=== PATIENT | female | born 1995 | race Caucasian/White ===

== ENCOUNTER 2017-03-12 20:58 | Inpatient (IN) | payer OTHER ==
[2017-03-12 21:27] LABS: BILIRUBIN,URINE NEGATIVE (NEGATIVE); GLUCOSE, URINE NEGATIVE (NEGATIVE); KETONES,URINE NEGATIVE (NEGATIVE); LEUKOCYTE ESTERASE,URINE LARGE (NEGATIVE); NITRITE,URINE NEGATIVE (NEGATIVE); PROTEIN,URINE 30 mg/dL (NEGATIVE); URINE SPECIFIC GRAVITY 1.016; UROBILINOGEN,URINE NEGATIVE mg/dL (<2.0)
[2017-03-12 21:28] LABS: APPEARANCE,URINE SLIGHTLY-CLOUDY
[2017-03-12 21:57] LABS: URINE BARBITURATES SCREEN NEGATIVE; URINE METHADONE SCREEN NEGATIVE; URINE OPIATES LOW NEGATIVE; URINE PHENCYCLIDINE SCREEN NEGATIVE
[2017-03-12] MEDS ORDERED: RINGERS SOLUTION,LACTATED 1,000 ML IV PRN (23:08)
[2017-03-12 23:39] LABS: HEMATOCRIT 35.8 % (36.0-47.0); HEMOGLOBIN 12.1 g/dL (12.0-15.5); HGB HCT DIFFERENCE 0.5; MEAN CORPUSCULAR HGB CONC 33.7 g/dL (32.0-36.0); MEAN CORPUSCULAR VOLUME 83 fl (80-97); RED BLOOD COUNT 4.31 10^6/uL (3.72-5.28); RED CELL DISTRIBUTION WIDTH 14.1 % (11.5-14.0); WHITE BLOOD COUNT 21.5 10^3/uL (4.0-10.5)
[2017-03-12 23:58] LABS: BASOPHILS % (MANUAL) 0 % (0-2); EOSINOPHILS % (MANUAL) 0 % (0-6); LYMPHOCYTES % (MANUAL) 14 % (13-45); TOTAL CELLS COUNTED 100
[2017-03-13] LABS: ANISOCYTOSIS SLIGHT; OVALOCYTES SLIGHT; POIKILOCYTOSIS SLIGHT; TOXIC GRANULATION SLIGHT
[2017-03-13] MEDS ORDERED: CEFAZOLIN 1 GM/D5W RTU 1 GM/50 ML RTUPB IV ONE (00:51)
[2017-03-13] MEDS ORDERED: MISOPROSTOL 0.2 MG TABLET ONE (00:52)
[2017-03-13] MEDS ORDERED: OXYTOCIN/NORMAL SALINE 20 UNIT/1,000 ML RTUINJ ONE (00:52)
[2017-03-13] MEDS ORDERED: LIDOCAINE 1% INJ-PF (10 MG/ML) 30 ML SDV ONE (00:52)
[2017-03-13] MEDS ORDERED: NALBUPHINE HCL INJ 10 MG/1 ML AMPULE IV ONE (04:25)
[2017-03-13] MEDS ORDERED: PROMETHAZINE HCL INJ 25 MG/1 ML VIAL IV ONE (04:25)
[2017-03-13] MEDS ORDERED: NALBUPHINE HCL INJ 10 MG/1 ML AMPULE ONE (04:26)
[2017-03-13] MEDS ORDERED: PROMETHAZINE HCL INJ 25 MG/1 ML VIAL ONE (04:26)
[2017-03-13] MEDS ORDERED: GLYCERIN/WITCH HAZEL LEAF 1 EACH MED..PAD TP PRN (05:44)
[2017-03-13] MEDS ORDERED: MEASLES,MUMPS&RUBELLA VACC/PF 0.5 ML VIAL SUBCUT PRN (05:44)
[2017-03-13] MEDS ORDERED: ACETAMINOPHEN WITH CODEINE #3 TABLET PO PRN (05:44)
[2017-03-13] MEDS ORDERED: DIPH/PERTUSS(ACELL)/TETANUS VAC/PF 0.5 ML SYR (>=10YO) IM PRN (05:44)
[2017-03-13] MEDS ORDERED: MAGNESIUM HYDROXIDE SUSP 30 ML UDCUP PO PRN (05:44)
[2017-03-13] MEDS ORDERED: DIBUCAINE 1% OINTMENT 28 GM TP PRN (05:44)
[2017-03-13] MEDS ORDERED: BENZOCAINE/MENTHOL AEROSOL SPRAY 56 ML TOP PRN (05:44)
[2017-03-13] MEDS ORDERED: PROMETHAZINE HCL 25 MG SUPP.RECT PR PRN (05:44)
[2017-03-13] MEDS ORDERED: ZOLPIDEM TARTRATE 5 MG TABLET PO PRN (05:44)
[2017-03-13] MEDS ORDERED: DIPHENHYDRAMINE HCL 25 MG CAPSULE PO PRN (05:44)
[2017-03-13] MEDS ORDERED: PROMETHAZINE HCL 25 MG TABLET PO PRN (05:44)
[2017-03-13] MEDS ORDERED: PROMETHAZINE HCL INJ 25 MG/1 ML VIAL IV PRN (05:44)
[2017-03-13] MEDS ORDERED: NA PHOS,M-B/NA PHOS,DI-BA (ADULT) 133 ML ENEMA PR PRN (05:44)
[2017-03-13] MEDS ORDERED: PSEUDOEPHEDRINE HCL 30 MG TABLET PO PRN (05:44)
[2017-03-13] MEDS ORDERED: OXYTOCIN/NORMAL SALINE 1,000 ML IV PRN (05:44)
[2017-03-13] MEDS ORDERED: ACETAMINOPHEN 650 MG SUPP.RECT PR PRN (05:44)
--- NOTE | 2017-03-13 06:09 | Delivery Summary ---
Del Sum A-C Datetime Report Generated by CPN: 03/13/2017 06:08 DELIVERY PERSONNEL DELIVERY PERSONNEL: [phone] Delivery Doctor:: Lynnette Goldman MD Labor and Delivery Nurse:: Theodora Betancur RN Nursery Nurse:: Idania Rolle RN Modern Dancer/PROJECT DEVELOPMENT COORDINATOR: Aarti Spencezgerald, ST MATERNAL INFORMATION Delivery Anesthesia: Local Medications After Delivery: Pitocin Drip 20 Units/1000ml NSS Meds After Delivery Comment: Ns with pitocin 20 units/liter ivf bolus Estimated Blood Loss (ml): 250 Maternal Complications: None Other Maternal Complications: received nubain and phenergan within hour of delivery LABOR SUMMARY EDC: 03/29/2017 00:00 No. Babies in Womb: 1 Attempted: No Labor Anesthesia: IV Sedation LABOR INFORMATION Reason for Induction: Not Applicable Onset of Labor: 03/12/2017 14:00 Complete Dilatation: 03/13/2017 05:14 Oxytocin: N/A Group B Beta Strep: Negative Antibiotics # of Doses: 1 Antibiotics Time of Last Dose: 0059 Name of Antibiotic Given: Ancef 1 gram Steroids Given: None Reason Steroids Not Administered: Not Applicable MEMBRANES Membranes Rupture Method: Artificial Rupture of Membranes: 03/13/2017 04:14 Length of Rupture (hr): 1.23 Amniotic Fluid Color: Light Meconium Amniotic Fluid Amount: Moderate Amniotic Fluid Odor: Normal STAGES OF LABOR Stage 1 hr: 15 Stage 1 min: 14 Stage 2 hr: 0 Stage 2 min: 14 Stage 3 hr: 0 Stage 3 min: 7 Total Time in Labor hr: 15 Total Time in Labor min: 35 VAGINAL DELIVERY Episiotomy: None Laceration Extension: N/A Other Laceration: labial Laceration Repair: Yes Laceration Repair Note: right labial lac repaired with 3-0 chromic suture times one Sponge Count Correct: N/A; Vaginal Sweep Performed Sharps Count Correct: Yes CSECTION DELIVERY Primary Indication: N/A Secondary Indication: N/A CSection Incidence: N/A Labor: N/A Elective: N/A CSection Incision: N/A BABY A INFORMATION Delivery Date/Time: 03/13/2017 05:28 Method of Delivery: Vaginal Born in Route : No : N/A Forceps: N/A Vacuum Extraction: N/A Shoulder Dystocia : No PRESENTATION/POSITION BABY A Presentation: Cephalic Cephalic Presentation: Vertex Vertex Position: Left Occipital Anterior Breech Presentation: N/A PLACENTA INFORMATION BABY A Placenta Delivery Time : 03/13/2017 05:35 Placenta Method of Delivery: Spontaneous Placenta Status: Delivered SCORES BABY A Heart Rate 1 min: >100 bpm Resp Effort 1 min: Good Cry Reflex Irritability 1 min: Cough or Sneeze or Pulls Away Muscle Tone 1 min: Active Motion Color 1 min: Blue/Pale Resuscitation Effort 1 min: Tactile Stimulation SCORE 1 MIN: 8 Heart Rate 5 min: >100 bpm Resp Effort 5 min: Good Cry Reflex Irritability 5 min: Cough or Sneeze or Pulls Away Muscle Tone 5 min: Active Motion Color 5 min: Body [place], Extremities Blue Resuscitation Effort 5 min: Tactile Stimulation SCORE 5 MIN: 9 INFORMATION BABY A Gestational Age at Delivery: 37.5 Gestational Status: Early Term- 37- 38.6 Weeks Outcome : Liveborn Condition : Stable Sex: Male IDENTIFICATION BABY A Infant Verification Date/Time: 03/13/2017 05:41 ID Band Number: [id number] Mother's Name Verified: Yes RN Verifying : SJessica Terrellir, RN _ JJessica Betancur, RN WEIGHT/LENGTH BABY A Infant Birthweight (gm): 3090 Weight (lb): 6 Infant Weight (oz): 13 Length (in): 20.00 Length (cm): 50.80 CORD INFORMATION BABY A No. Cord Vessels: 3 Nuchal Cord : N/A Cord Blood Taken: Yes-For Eval (Mom's Blood Type - or O+) Infant Suction: Mouth; Nose ASSESSMENT BABY A Complications: Multiple Variable Decels; Meconium Infant Complications- Other: fluid turned to light meconium at time of delivery, received nubain and phenergan within hour of delivery Physical Findings at Delivery: Cap[place] Succedaneum Infant Respirations: Grunting; Sternal Retractions Skin to Skin: Yes Skin to Skin Time (min): 5 Steel Fitter/ALS Called : No Care By: AUDRA Aquilino Transferred To: [facility] BABY B INFORMATION : N/A SIGNATURES Signature: with User ID: [email or web address]
--- NOTE | 2017-03-13 08:24 | Admission Physical ---
Datetime Report Generated by CPN: 03/13/2017 08:23 CURRENT ADMISSION Chief Complaint: Uterine Contractions Indication for Induction: Not Applicable Admit Plan: Admit to Unit; Initiate Labor Protocol ALLERGIES Medication Allergies: No Medication Allergies: No Known Allergies (03/12/2017) Medication Allergies: No Known Allergies (03/12/2017), peanuts, lactose intolerant Latex: No Latex Allergies Food Allergies: peanuts, lactose intolerant Environmental Allergies: denies OBSTETRICAL HISTORY EDC: 03/29/2017 00:00 : 1 Para: 0 Term: 0 : 0 SAB: 0 IAB: 0 Ectopic: 0 Livin Cesareans: 0 VBACs: 0 Multiple Births: 0 Gestational Diabetes: No Rh Sensitization: No Incompetent Cervix: No GLADIS: No Infertility: No ART Treatment: No Uterine Anomaly: No IUGR: No Hx Previous C/S: No Macrosomia: No Hx Loss/Stillborn: No PIH: No Hx : No Placenta Previa/Abruption: No Depression/PP Depression: No PTL/PROM: No Post Hemorrhage: No Current Procedures: Ultrasound Obstetrical History Comments: G1- Current SEE RECORDS Alcohol: No Marijuana : No Cocaine: No Other Illicit Drugs: No Cigarettes: Never Smoker. [id number] MEDICAL HISTORY Diabetes: No Blood Transfusion: No Pulmonary Disease (Asthma, TB): No Breast Disease: No Hypertension: No Pipe Maker Surgery: No Heart Disease: No Hosp/Surgery: No Autoimmune Disorder: No Anesthetic Complications: No Kidney Disease: No Abnormal Pap Smear: No Neuro/Epilepsy: No Psychiatric Disorders: No Other Medical Diseases: Yes Hepatitis/Liver Disease: No Significant Family History: No Varicosities/Phlebitis: No Trauma/Violence : No Thyroid Dysfunction: No Medical History Comments: PCOS, insulin resistance, depression stopped meds two years ago INFECTIOUS HISTORY Gonorrhea: No Genital Herpes: No Chlamydia: No Tuberculosis: No Syphilis: No Hepatitis: No HIV/AIDS Exposure: No Rash or Viral Illness: No HPV: No PHYSICAL EXAM General: Normal HEENT: Normal Neurologic: Normal Thyroid: Normal Heart: Normal Lungs: Normal Breast: Deferred Back: Normal Abdomen: Normal Genitourinary Exam: Normal Extremities: Normal DTRs: Normal Pelvic Type: Adequate Vital Signs: Reviewed VAGINAL EXAM Dilatation: 7 Effacement: 100 Station: -1 MEMBRANES Pooling: Negative Membranes: Intact FETUS A EGA: 37.5 Monitoring: External US FHR- Baseline: 120 Variability: Moderate 6-25bpm Accelerations: 15X15 FHR Category: Category I Presentation: Vertex PLANS FOR LABOR AND DELIVERY Labor and Delivery: None Pain Management: Natural Feeding Preference: Breast Benefit of Breast Feed Discussed: Yes Circumcision: Yes INFORMED CONSENT Signature: with User ID: [email or web address]
[2017-03-13] MEDS ORDERED: CEFAZOLIN 1 GM/D5W RTU 1 GM/50 ML RTUPB IV SCH (09:00)
[2017-03-13] MEDS: DOCUSATE SODIUM 100 MG CAPSULE PO SCH ×2 (10:17→18:11)
[2017-03-13] MEDS: FAMOTIDINE 20 MG TABLET PO SCH ×2 (10:17→21:45)
[2017-03-13] MEDS: SENNOSIDES/DOCUSATE 8.6-50 MG 1 EACH TABLET PO SCH (10:17)
[2017-03-13] MEDS: PRENATAL VITAMIN W-O CA NO5/FE FUMARATE/FA CAPSULE PO SCH (10:17)
[2017-03-13] MEDS: FERROUS SULFATE 325 MG TABLET PO SCH ×2 (10:18→18:12)
[2017-03-13] MEDS: IBUPROFEN 800 MG TABLET PO SCH ×2 (13:14→21:44)
[2017-03-13] MEDS: ACETAMINOPHEN WITH CODEINE #3 TABLET PO PRN (18:19)
[2017-03-14] MEDS: IBUPROFEN 800 MG TABLET PO SCH ×3 (05:58→21:57)
[2017-03-14] MEDS: ACETAMINOPHEN WITH CODEINE #3 TABLET PO PRN (07:29)
[2017-03-14 07:33] LABS: HEMATOCRIT 31.8 % (36.0-47.0); HEMOGLOBIN 10.5 g/dL (12.0-15.5); HGB HCT DIFFERENCE -0.3; MEAN CORPUSCULAR VOLUME 85 fl (80-97); RED BLOOD COUNT 3.75 10^6/uL (3.72-5.28); RED CELL DISTRIBUTION WIDTH 14.1 % (11.5-14.0); WHITE BLOOD COUNT 18.3 10^3/uL (4.0-10.5)
--- NOTE | 2017-03-14 11:57 | PDOC PROGRESS REPORT ---
Subjective-OB Subjective: Post Delivery Day:1 22 year old G1 now P1 s/p ppd1. Ambulating, without difficulty. 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 Denies any needs at this time Physical Exam (OB) Vital Signs: Temp Pulse Resp BP Pulse Ox 98.2 F 80 13 124/76 100 03/14/17 07:48 03/14/17 07:48 03/14/17 07:48 03/14/17 07:48 03/14/17 07:48 Intake & Output 03/13/17 03/14/17 03/15/17 06:59 06:59 06:59 Weight 92.8 kg - General General Appearance: Appears well In distress: None - Episiotomy/Laceration Site Condition: Well Approximated - Lochia Lochia Amount: Scant < 10 ml Lochia Color: Rubra/Red - Abdomen Description: Soft, Flat Hernia Present: No Fundal Description: Firm, Midline Fundal Height: u/u - u/2 - Respiratory Respiratory Status: No respiratory distress - Extremities Upper extremity: Normal inspection Lower extremities: Normal inspection - Neurological Cognition: Normal Orientation: AAOx4 - Psychological Associated symptoms: Normal affect, Normal mood - pt. sad with being deployed but due to come home in about 3 weeks. Bonding well with baby. Objective-Diagnostic Laboratory: 03/14/17 07:23 03/14/17 07:23 WBC 18.3 H RBC 3.75 Hgb 10.5 L Hct 31.8 L MCV 85 MCH 28.0 MCHC 33.0 RDW 14.1 H Plt Count 214 Assessment and Plan(PN) - Assessment and Plan (1) Vaginal delivery Is this a current diagnosis for this admission?: YesPlan: continue stay (2) Acute blood loss anemia Is this a current diagnosis for this admission?: YesPlan: inc. iron in diet and feso4 supplementation - Time Spent with Patient Time with patient: 15-25 minutes Medications reviewed and adjusted accordingly: Yes - Disposition Anticipated Discharge: Home Within: within 24 hours
[2017-03-14] MEDS: PRENATAL VITAMIN W-O CA NO5/FE FUMARATE/FA CAPSULE PO SCH (12:03)
[2017-03-14] MEDS: SENNOSIDES/DOCUSATE 8.6-50 MG 1 EACH TABLET PO SCH (12:04)
[2017-03-14] MEDS: FERROUS SULFATE 325 MG TABLET PO SCH ×2 (12:04→18:31)
[2017-03-14] MEDS: DOCUSATE SODIUM 100 MG CAPSULE PO SCH ×2 (12:04→18:32)
[2017-03-14] MEDS: FAMOTIDINE 20 MG TABLET PO SCH ×2 (12:04→21:58)
[2017-03-15] MEDS: IBUPROFEN 800 MG TABLET PO SCH ×2 (05:55→13:05)
[2017-03-15 08:04] LABS: MEAN CORPUSCULAR HEMOGLOBIN 28.3 pg (27.0-33.4); MEAN CORPUSCULAR HGB CONC 33.4 g/dL (32.0-36.0); MEAN CORPUSCULAR VOLUME 85 fl (80-97); RED CELL DISTRIBUTION WIDTH 13.7 % (11.5-14.0); WHITE BLOOD COUNT 17.4 10^3/uL (4.0-10.5)
[2017-03-15 08:32] VITALS: BP 111/77
[2017-03-15] MEDS: DOCUSATE SODIUM 100 MG CAPSULE PO SCH (09:35)
[2017-03-15] MEDS: PRENATAL VITAMIN W-O CA NO5/FE FUMARATE/FA CAPSULE PO SCH (09:35)
[2017-03-15] MEDS: SENNOSIDES/DOCUSATE 8.6-50 MG 1 EACH TABLET PO SCH (09:35)
[2017-03-15] MEDS: FERROUS SULFATE 325 MG TABLET PO SCH (09:35)
[2017-03-15] MEDS: FAMOTIDINE 20 MG TABLET PO SCH (09:36)
--- NOTE | 2017-03-15 11:49 | PDOC DISCHARGE SUMMARY ---
Final Diagnosis Discharge Date: 03/15/17 - Final Diagnosis (1) Acute blood loss anemia Is this a current diagnosis for this admission?: Yes (2) Vaginal delivery Is this a current diagnosis for this admission?: Yes Discharge Data - Discharge Medication Home Medications: Pnv95/Ferrous Fumarate/FA [ Vitamins Tablet] 1 tab PO DAILY 03/12/17 Reason(s) for Admission: Onset of Labor Intrapartum Procedure(s): Spontaneous Vaginal Delivery Complication(s): Laceration-Labial Laceration-Degree: 1st - Diagnosis Test Laboratory: Temp Pulse Resp BP Pulse Ox 98.0 F 89 20 111/77 100 03/15/17 08:01 03/15/17 08:01 03/15/17 08:01 03/15/17 08:01 03/15/17 08:01 03/12/17 03/12/17 03/14/17 21:07 23:27 07:23 RBC 4.31 3.75 Hgb 12.1 10.5 L Hct 35.8 L 31.8 L Urine Opiates Screen NEGATIVE 03/15/17 07:54 RBC 3.90 Hgb 11.0 L Hct 33.0 L Urine Opiates Screen - Discharge information/Instructions Discharge Activity: Activity As Tolerated, Balance Activity w/Rest Discharge Diet: Regular Disposition: HOME, SELF-CARE Follow up with: [facility] in: 4 - lacatation treasury consultant to see pt prior to discharge precautions reviewed
== END 2017-03-15 13:27 | disposition home or self-care (01) | DRG 775 ==
LOC: LC 20:58 → LR 23:06 → 2S 03-13 08:22
PROVIDERS: ADMIT Obstetrics & Gynecology; ATTEND Obstetrics & Gynecology
PROC: 4A1HXCZ Monitoring of Products of Conception, Cardiac Rate, External Approach (ICD-10-PCS; 2017-03-12)
PROC: 10E0XZZ Delivery of Products of Conception, External Approach (ICD-10-PCS; principal; 2017-03-13)
PROC: 0HQ9XZZ Repair Perineum Skin, External Approach (ICD-10-PCS; 2017-03-13)
PROC: 10907ZC Drainage of Amniotic Fluid, Therapeutic from Products of Conception, Via Natural or Artificial Opening (ICD-10-PCS; 2017-03-13)
DX: O76 Abnormality in fetal heart rate and rhythm complicating labor and delivery (principal); D62 Acute posthemorrhagic anemia; O99.02 Anemia complicating childbirth; O70.0 First degree perineal laceration during delivery; O26.893 Other specified pregnancy related conditions, third trimester; O77.0 Labor and delivery complicated by meconium in amniotic fluid; E73.9 Lactose intolerance, unspecified; Z91.010 Allergy to peanuts; Z3A.37 37 weeks gestation of pregnancy; Z37.0 Single live birth
CPT/HCPCS: 36415; 80307; 81005; 85025; 85027; 86592; 86850; 86900; 86901; 90715; J0690; J2300; J2550; J2590; J3490

== ENCOUNTER 2018-04-25 03:44 | Inpatient (IN) | payer OTHER ==
[2018-04-25 04:07] LABS: APPEARANCE,URINE CLOUDY; BILIRUBIN,URINE NEGATIVE (NEGATIVE); COLOR,URINE YELLOW; GLUCOSE, URINE NEGATIVE (NEGATIVE); KETONES,URINE NEGATIVE (NEGATIVE); LEUKOCYTE ESTERASE,URINE TRACE (NEGATIVE); NITRITE,URINE NEGATIVE (NEGATIVE); PROTEIN,URINE NEGATIVE (NEGATIVE); URINE SPECIFIC GRAVITY 1.008; UROBILINOGEN,URINE NEGATIVE mg/dL (<2.0)
[2018-04-25 04:19] LABS: URINE AMPHETAMINES SCREEN NEGATIVE; URINE BARBITURATES SCREEN NEGATIVE; URINE BENZODIAZEPINES SCREEN NEGATIVE; URINE COCAINE SCREEN NEGATIVE; URINE MARIJUANA (THC) SCREEN NEGATIVE; URINE METHADONE SCREEN NEGATIVE; URINE PHENCYCLIDINE SCREEN NEGATIVE
[2018-04-25] MEDS ORDERED: HYDROXYZINE PAMOATE 50 MG CAPSULE PO ONE (04:52)
--- NOTE | 2018-04-25 04:57 | Non Stress Test Report ---
Non Stress Test Datetime Report Generated by CPN: 04/25/2018 04:57 DEMOGRAPHIC Test Number: 1 EGA NST: 33.4 INDICATION Indication for Study: Ordered by Provider MONITORING Monitor Explained: Monitor Explained; Test Explained; Patient Verbalized Understanding Time on Monitor: 04/25/2018 03:57 Time off Monitor: 04/25/2018 04:53 NST Duration: 56 NST INTERVENTIONS NST Interventions: PO Hydration Physician Notified NST: Dr. Maury BABY A: [id number] BABY A Movement : Present Contraction Frequency : irritibility FHR Baseline : 140 Accelerations : 15X15 Decelerations : None Variability : Moderate 6-25bpm NST Review: Meets Criteria for Reactive NST NST Review and Verified By : ALLEN Garcia NST REPORT Report Trigger: Send Report
[2018-04-25] MEDS ORDERED: HYDROXYZINE PAMOATE 50 MG CAPSULE ONE (05:00)
[2018-04-25] MEDS ORDERED: MISOPROSTOL 0.2 MG TABLET ONE (05:36)
[2018-04-25] MEDS ORDERED: LIDOCAINE 1% INJ-PF (10 MG/ML) 30 ML SDV ONE (05:36)
[2018-04-25] MEDS ORDERED: OXYTOCIN/NORMAL SALINE 20 UNIT/1,000 ML RTUINJ ONE (05:36)
[2018-04-25] MEDS ORDERED: PENICILLIN G-K 5 MILLION UNIT VIAL ONE ×3 (05:38→08:57)
[2018-04-25] MEDS ORDERED: BETAMET ACET/BETAMET NA INJ 6 MG/1 ML ONE (05:44)
[2018-04-25] MEDS ORDERED: NIFEDIPINE 10 MG CAPSULE ONE (05:46)
[2018-04-25] MEDS ORDERED: PENICILLIN G POTASSIUM 5,000,000 UNIT in DEXTROSE 5%-WATER 100 ML IV ONE (05:48)
[2018-04-25] MEDS ORDERED: RINGERS SOLUTION,LACTATED 1,000 ML IV ONE (05:48)
[2018-04-25] MEDS ORDERED: RINGERS SOLUTION,LACTATED 1,000 ML IV PRN (05:48)
[2018-04-25] MEDS ORDERED: BETAMET ACET/BETAMET NA INJ 6 MG/1 ML IM ONE (05:51)
--- NOTE | 2018-04-25 05:54 | Admission Physical ---
Datetime Report Generated by CPN: 04/25/2018 05:53 CURRENT ADMISSION Chief Complaint: Uterine Contractions Indication for Induction: Not Applicable Admit Impression : , Intrauterine ; Active Labor; Intact Membranes; Obstetrical Complication Admit Plan: Admit to Unit; Initiate Labor Protocol Admit Plan- Other: over 32 weeks therefore will forgoe Mag. Give ACS protocol and procardia for tocolysis. ALLERGIES Medication Allergies: No Medication Allergies: No Known Allergies (03/12/2017) Latex: No Latex Allergies OBSTETRICAL HISTORY EDC: 06/09/2018 00:00 : 2 Para: 1 Term: 1 : 0 SAB: 0 IAB: 0 Ectopic: 0 Livin Cesareans: 0 VBACs: 0 Multiple Births: 0 Gestational Diabetes: No Rh Sensitization: No Incompetent Cervix: No GLADIS: No Infertility: No ART Treatment: No Uterine Anomaly: No IUGR: No Hx Previous C/S: No Macrosomia: No Hx Loss/Stillborn: No PIH: No Hx : No Placenta Previa/Abruption: No Depression/PP Depression: Yes PTL/PROM: No Post Hemorrhage: No Obstetrical History Comments: G1- G2- current SEE RECORDS Alcohol: No Marijuana : No Cocaine: No Other Illicit Drugs: No Cigarettes: Never Smoker. [id number] MEDICAL HISTORY Diabetes: No Blood Transfusion: No Pulmonary Disease (Asthma, TB): No Breast Disease: No Hypertension: No Heel Compressor Surgery: No Heart Disease: No Hosp/Surgery: No Autoimmune Disorder: No Anesthetic Complications: No Kidney Disease: No Abnormal Pap Smear: No Neuro/Epilepsy: No Psychiatric Disorders: No Other Medical Diseases: No Hepatitis/Liver Disease: No Significant Family History: No Varicosities/Phlebitis: No Trauma/Violence : No Thyroid Dysfunction: No Medical History Comments: anxiety and depression INFECTIOUS HISTORY Gonorrhea: No Genital Herpes: No Chlamydia: No Tuberculosis: No Syphilis: No Hepatitis: No HIV/AIDS Exposure: No Rash or Viral Illness: No HPV: No PHYSICAL EXAM General: Normal HEENT: Normal Neurologic: Normal Thyroid: Normal Heart: Normal Lungs: Normal Breast: Normal Back: Normal Abdomen: Normal Genitourinary Exam: Normal Extremities: Normal DTRs: Normal Pelvic Type: Adequate Vital Signs: Reviewed VAGINAL EXAM Dilatation: 5 Effacement: 90 Station: -1 MEMBRANES Pooling: Negative Membranes: Intact FETUS A EGA: 33.4 Monitoring: External US FHR- Baseline: 140 Variability: Moderate 6-25bpm Accelerations: 15X15 Decelerations: None FHR Category: Category I Estimated Weight (gm): 2200 Presentation: Vertex PLANS FOR LABOR AND DELIVERY Pain Management: None Feeding Preference: Breast Benefit of Breast Feed Discussed: Yes Circumcision: No INFORMED CONSENT Signature: with User ID: [email or web address]
[2018-04-25] MEDS: NIFEDIPINE 10 MG CAPSULE PO SCH ×2 (06:28→13:40)
[2018-04-25 07:40] LABS: ABSOLUTE BASOPHILS # (AUTO) 0.1 10^3/uL (0.0-0.2); ABSOLUTE LYMPHOCYTES (AUTO) 1.8 10^3/uL (0.5-4.7); ABSOLUTE MONOCYTES (AUTO) 0.6 10^3/uL (0.1-1.4); ABSOLUTE NEUT (AUTO) 16.4 10^3/uL (1.7-8.2); BASOPHILS % (AUTO) 0.3 % (0-2); EOSINOPHILS % (AUTO) 0.2 % (0-6); HEMATOCRIT 34.2 % (36.0-47.0); HEMOGLOBIN 11.4 g/dL (12.0-15.5); LYMPHOCYTES % (AUTO) 9.4 % (13-45); MEAN CORPUSCULAR HEMOGLOBIN 27.9 pg (27.0-33.4); MEAN CORPUSCULAR HGB CONC 33.3 g/dL (32.0-36.0); MEAN CORPUSCULAR VOLUME 84 fl (80-97); MONOCYTES % (AUTO) 3.2 % (3-13); PLATELET COUNT 246 10^3/uL (150-450); SEGMENTED NEUTROPHILS % (AUTO) 86.9 % (42-78); TOTAL CELLS COUNTED % (AUTO) 100 %; WHITE BLOOD COUNT 18.9 10^3/uL (4.0-10.5)
[2018-04-25] MEDS ORDERED: PENICILLIN G POTASSIUM 2,500,000 UNIT in DEXTROSE 5%-WATER 50 ML IV SCH (09:50)
[2018-04-25] MEDS ORDERED: IBUPROFEN 800 MG TABLET ONE (11:11)
[2018-04-25] MEDS ORDERED: ZOLPIDEM TARTRATE 5 MG TABLET PO PRN (13:16)
[2018-04-25] MEDS ORDERED: OXYTOCIN/NORMAL SALINE 20 UNIT/1,000 ML RTUINJ IV PRN (13:16)
[2018-04-25] MEDS ORDERED: MEASLES,MUMPS&RUBELLA VACC/PF 0.5 ML VIAL SUBCUT PRN (13:16)
[2018-04-25] MEDS ORDERED: DIPH/PERTUSS(ACELL)/TETANUS VAC/PF 0.5 ML SYR (>=10YO) IM PRN (13:16)
[2018-04-25] MEDS ORDERED: BENZOCAINE/MENTHOL AEROSOL SPRAY 56 ML TOP PRN (13:16)
[2018-04-25] MEDS ORDERED: DIBUCAINE 1% OINTMENT 28 GM TP PRN (13:16)
[2018-04-25] MEDS ORDERED: ACETAMINOPHEN WITH CODEINE #3 TABLET PO PRN ×2 (13:16)
[2018-04-25] MEDS: IBUPROFEN 800 MG TABLET PO SCH ×2 (13:45→22:37)
[2018-04-25] MEDS: FERROUS SULFATE 325 MG TABLET PO SCH (17:30)
[2018-04-25] MEDS: DOCUSATE SODIUM 100 MG CAPSULE PO SCH (17:30)
[2018-04-26 09:20] LABS: HEMATOCRIT 32.6 % (36.0-47.0); HEMOGLOBIN 10.8 g/dL (12.0-15.5); MEAN CORPUSCULAR HEMOGLOBIN 27.6 pg (27.0-33.4); MEAN CORPUSCULAR VOLUME 84 fl (80-97); PLATELET COUNT 286 10^3/uL (150-450); WHITE BLOOD COUNT 19.1 10^3/uL (4.0-10.5)
[2018-04-26] MEDS: IBUPROFEN 800 MG TABLET PO SCH ×3 (09:31→22:33)
[2018-04-26] MEDS: DOCUSATE SODIUM 100 MG CAPSULE PO SCH ×2 (09:32→17:49)
[2018-04-26] MEDS: PRENATAL VITAMIN W DHA CAPSULE PO SCH (09:32)
[2018-04-26] MEDS: SENNOSIDES/DOCUSATE 8.6-50 MG 1 EACH TABLET PO SCH (09:32)
[2018-04-26] MEDS: FERROUS SULFATE 325 MG TABLET PO SCH ×2 (09:32→17:49)
--- NOTE | 2018-04-26 10:24 | PDOC PROGRESS REPORT ---
Subjective-OB Progress Note for:: 04/26/18 Subjective: Doing well, no c/o, pain under control, baby doing better, pumping breasts, ambulating Physical Exam (OB) Vital Signs: Temp Pulse Resp BP Pulse Ox 98.3 F 80 18 116/66 97 04/25/18 20:45 04/25/18 20:45 04/25/18 20:45 04/25/18 20:45 04/25/18 20:45 Intake & Output 04/25/18 04/26/18 04/27/18 06:59 06:59 06:59 Intake Total 850 Balance 850 Weight 97 kg - Lochia Lochia Amount: Scant < 10 ml Lochia Color: Rubra/Red - Abdomen Description: Soft, Round Hernia Present: No Fundal Description: Firm, Midline Fundal Height: u/u - u/2 Assessment and Plan(PN) - Assessment and Plan (1) Acute blood loss anemia Is this a current diagnosis for this admission?: Yes (2) Vaginal delivery Is this a current diagnosis for this admission?: Yes - Time Spent with Patient Time with patient: Less than 15 minutes Medications reviewed and adjusted accordingly: Yes - Disposition Anticipated Discharge: Home Within: within 24 hours
[2018-04-27] MEDS: IBUPROFEN 800 MG TABLET PO SCH (06:05)
[2018-04-27 08:34] VITALS: BP 119/74
[2018-04-27] MEDS: DOCUSATE SODIUM 100 MG CAPSULE PO SCH (09:59)
[2018-04-27] MEDS: PRENATAL VITAMIN W DHA CAPSULE PO SCH (10:00)
[2018-04-27] MEDS: FERROUS SULFATE 325 MG TABLET PO SCH (10:00)
[2018-04-27] MEDS: SENNOSIDES/DOCUSATE 8.6-50 MG 1 EACH TABLET PO SCH (10:00)
--- NOTE | 2018-04-27 13:06 | PDOC DISCHARGE SUMMARY ---
Final Diagnosis Discharge Date: 04/27/18 - Final Diagnosis (1) delivery Is this a current diagnosis for this admission?: Yes (2) Vaginal delivery Is this a current diagnosis for this admission?: Yes (3) Acute blood loss anemia Is this a current diagnosis for this admission?: Yes Discharge Data - Discharge Medication Prescriptions: Ibuprofen [Motrin 800 mg Tablet] 800 mg PO Q8HP PRN #30 tablet PRN Reason: Abdominal Cramping Docusate Sodium [Colace 100 mg Capsule] 100 mg PO BID #60 capsule Ferrous Sulfate [Feosol 325 mg Tablet] 325 mg PO BID #60 tablet Home Medications: Pnv No.95/Ferrous Fum/Folic AC [ Vitamins Tablet] 1 tab PO DAILY Docusate Sodium [Colace 100 mg Capsule] 100 mg PO BID #60 capsule 04/27/18 Ferrous Sulfate [Feosol 325 mg Tablet] 325 mg PO BID #60 tablet 04/27/18 Ibuprofen [Motrin 800 mg Tablet] 800 mg PO Q8HP PRN #30 tablet 04/27/18 Reason(s) for Admission: Onset of Labor, Labor Procedures: Ultrasound Intrapartum Procedure(s): Spontaneous Vaginal Delivery - Diagnosis Test Laboratory: Temp Pulse Resp BP Pulse Ox 97.8 F 78 15 119/74 100 04/27/18 10:46 04/27/18 10:46 04/27/18 10:46 04/27/18 08:10 04/27/18 10:46 04/25/18 04/25/18 04/26/18 03:47 06:20 07:21 RBC 4.10 3.90 Hgb 11.4 L 10.8 L Hct 34.2 L 32.6 L Urine Opiates Screen NEGATIVE - Discharge information/Instructions Discharge Activity: Activity As Tolerated, Balance Activity w/Rest, No Lifting Over 10 Pounds, No Lifting/Push/Pulling, Pelvic Rest, Slowly Increase Activity, No tub bath, Walk Frequently Discharge Diet: As Tolerated, Regular Disposition: HOME, SELF-CARE Follow up with: [facility] in: 4, Weeks
--- NOTE | 2018-05-10 11:20 | Delivery Summary ---
Del Sum A-C Datetime Report Generated by CPN: 05/10/2018 11:19 DELIVERY PERSONNEL DELIVERY PERSONNEL: [id number] Delivery Doctor:: Alfreda Rushing CNM Nurse Aviation Technical Systems Specialist Certified:: Alfreda Rushing CNM Labor and Delivery Nurse:: Gregory Smalls RN Neonatal Nurse Practitioner:: CHIP Harrison Nursery Nurse:: Kimber Foote RN Nursery Nurse:: Chinyere Dietz RN Hand Paster/DRY STARCH OPERATOR: Gabriela Chavez DRY STARCH OPERATOR II MATERNAL INFORMATION Delivery Anesthesia: None Medications After Delivery: Pitocin Bolus-Please Comment Meds After Delivery Comment: Pitocin 20 units in 1000ml nss open for bolus Maternal Complications: Other Complication Details: ptl 33+4 weeks Provider Comments: Called to room, pt with urge to push. Arom at complete dilation. SVDVM over intact perineum, stimulated, placed on mothers abd, cord clamped x 2 and cut. 3VC noted. Placenta via Rushing mech. FF immediately, bleeding stabilized. QBL 150. Baby in care of NBN staff. Mother stable. LABOR SUMMARY EDC: 06/09/2018 00:00 No. Babies in Womb: 1 Attempted: No Labor Anesthesia: None LABOR INFORMATION Reason for Induction: Not Applicable Onset of Labor: 04/25/2018 05:32 Complete Dilatation: 04/25/2018 10:37 Oxytocin: N/A Group B Beta Strep: 1 NO GROUP B STREPTOCOCCUS RECOVERED Group B Beta Strep: Unknown Antibiotics # of Doses: 2 Antibiotics Time of Last Dose: 0900 Name of Antibiotic Given: Penicillin Steroids Given: Partial Course; < 24 Hours before Delivery Reason Steroids Not Administered: Imminent Delivery MEMBRANES Membranes Rupture Method: Artificial Rupture of Membranes: 04/25/2018 10:39 Length of Rupture (hr): 0.08 Amniotic Fluid Color: Clear Amniotic Fluid Amount: Moderate Amniotic Fluid Odor: Normal STAGES OF LABOR Stage 1 hr: 5 Stage 1 min: 5 Stage 2 hr: 0 Stage 2 min: 7 Stage 3 hr: 0 Stage 3 min: 5 Total Time in Labor hr: 5 Total Time in Labor min: 17 VAGINAL DELIVERY Episiotomy: None Laceration #1: None Laceration Repair: Not Applicable Laceration Repair Note: n/a Sponge Count Correct: N/A Sharps Count Correct: N/A CSECTION DELIVERY Primary Indication: N/A Secondary Indication: N/A CSection Incidence: N/A Labor: N/A Elective: Elective CSection Incision: N/A BABY A INFORMATION Infant Delivery Date/Time: 04/25/2018 10:44 Method of Delivery: Vaginal Method of Delivery: Vaginal Born in Route : No : N/A Forceps: N/A Vacuum Extraction: N/A Shoulder Dystocia : No PRESENTATION/POSITION BABY A Presentation: Cephalic Cephalic Presentation: Vertex Vertex Position: Right Occipital Anterior Breech Presentation: N/A PLACENTA INFORMATION BABY A Placenta Delivery Time : 04/25/2018 10:49 Placenta Method of Delivery: Spontaneous Placenta Method of Delivery: Spontaneous Placenta Status: Delivered SCORES BABY A Heart Rate 1 min: >100 bpm Resp Effort 1 min: Good Cry Reflex Irritability 1 min: Cough or Sneeze or Pulls Away Muscle Tone 1 min: Some Flexion of Extremities Color 1 min: Blue/Pale Resuscitation Effort 1 min: Tactile Stimulation; Oxygen SCORE 1 MIN: 7 Heart Rate 5 min: >100 bpm Resp Effort 5 min: Slow, Irregular Reflex Irritability 5 min: Cough or Sneeze or Pulls Away Muscle Tone 5 min: Some Flexion of Extremities Color 5 min: Body Adams, Extremities Blue Resuscitation Effort 5 min: Tactile Stimulation; Oxygen; PPV/NCPAP SCORE 5 MIN: 7 INFANT INFORMATION BABY A Gestational Age at Delivery: 33.4 Gestational Status: - <34 Weeks Outcome : Liveborn Infant Condition : Fair Infant Sex: Male Infant Sex: Male IDENTIFICATION BABY A Infant Verification Date/Time: 04/25/2018 11:50 ID Band Number: [id number] Mother's Name Verified: Yes Infant RN Verifying Infant: Declan Cortez, RN and Gregory Smalls, RN WEIGHT/LENGTH BABY A Infant Birthweight (gm): 2222 Infant Weight (lb): 4 Weight (oz): 14 Infant Length (in): 17.50 Length (cm): 44.45 CORD INFORMATION BABY A No. Cord Vessels: 3 Nuchal Cord : N/A Cord Blood Taken: Yes-For Eval (Mom's Blood Type - or O+) Infant Suction: None ASSESSMENT BABY A Complications: Other Infant Respirations: Grunting; Intercostal Retractions; Nasal Flaring; Tachypnea Skin to Skin: No Skin to Skin Time (min): 0 Care By: R Qamar RN/K J Luis RN BABY B INFORMATION : N/A SIGNATURES Assignment: Lynnette Goldman MD Signature: with User ID: [email or web address] : with User ID: [email or web address] : I was personally available for consultation and serving as supervising physician for the MLP.
== END 2018-04-27 12:20 | disposition home or self-care (01) | DRG 775 ==
LOC: LC 03:44 → LR 05:37 → 2S 13:24
PROVIDERS: ADMIT Obstetrics & Gynecology; ATTEND Obstetrics & Gynecology
PROC: 10E0XZZ Delivery of Products of Conception, External Approach (ICD-10-PCS; principal; 2018-04-25)
PROC: 4A1HXCZ Monitoring of Products of Conception, Cardiac Rate, External Approach (ICD-10-PCS; 2018-04-25)
DX: O60.14X0 Preterm labor third trimester with preterm delivery third trimester, not applicable or unspecified (principal); D62 Acute posthemorrhagic anemia; O99.344 Other mental disorders complicating childbirth; F41.9 Anxiety disorder, unspecified; F32.9 Major depressive disorder, single episode, unspecified; O99.02 Anemia complicating childbirth; O99.824 Streptococcus B carrier state complicating childbirth; Z3A.33 33 weeks gestation of pregnancy; Z37.0 Single live birth
CPT/HCPCS: 36415; 80307; 81001; 85025; 85027; 86592; 86850; 86900; 86901; 87081; 88307; J0702; J2540; J2590; J3490